=== PATIENT | male | born 1995 | race African-American/Black ===

== ENCOUNTER 2018-04-15 11:24 | Emergency (ER) | payer OTHER | END 2018-04-15 12:04 | disposition home or self-care (01) | LOC: M ED 11:24 | DX: B08.4 Enteroviral vesicular stomatitis with exanthem (principal) | CPT/HCPCS: 99283 ==

== ENCOUNTER 2021-02-25 13:38 | Emergency (ER) | payer OTHER ==
[~2021-02-25] VITALS: Ht 175.3 cm; Wt 110.5 kg
[2021-02-25 13:38] VITALS: BP 143/98
[2021-02-25] MEDS ORDERED: ACET-683 PO (13:49)
[2021-02-25] MEDS ORDERED: IBUPROFEN 600MG TAB PO ONE (16:55)
[2021-02-25] MEDS ORDERED: METOCLOPRAMIDE 5 MG TAB PO ONE (16:55)
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
== END 2021-02-25 18:11 | disposition home or self-care (01) ==
LOC: M ED 13:38
DX: S06.0X0A Concussion without loss of consciousness, initial encounter (principal); W51.XXXA Accidental striking against or bumped into by another person, initial encounter; Y92.9 Unspecified place or not applicable; Y93.67 Activity, basketball; Y99.9 Unspecified external cause status